=== PATIENT | female | born 1950 | race Hispanic/Latino ===

== ENCOUNTER 2019-08-09 14:49 | Outpatient (CLI) | payer MEDICARE, MEDICAID ==
--- NOTE | 2019-08-09 15:54 | MMO ---
Bilateral MAMMO Bilat Screen [facility]. CLINICAL HISTORY: Patient is 68 years old and is seen for screening. The patient has no family history of breast cancer. The patient has no personal history of cancer. VIEWS: The views performed were: bilateral craniocaudal with tomosynthesis and bilateral mediolateral oblique with tomosynthesis. FILMS COMPARED: The present examination has been compared to prior imaging studies performed at [facility] on 11/07/2012, 11/13/2013, 03/22/2015 and 08/20/2016. This study has been interpreted with the assistance of computer-aided detection. MAMMOGRAM FINDINGS: There are scattered fibroglandular densities. There are vascular calcifications seen in both breasts. There are no suspicious masses, suspicious calcifications, or new areas of architectural distortion. IMPRESSION: A ROUTINE FOLLOW-UP MAMMOGRAM IN 1 YEAR IS RECOMMENDED. THE RESULTS OF THIS EXAM WERE SENT TO THE PATIENT. ACR BI-RADS Category 2 - Benign finding MAMMOGRAPHY NOTE: 1. A negative mammogram report should not delay a biopsy if a dominant of clinically suspicious mass is present. 2. Approximately 10% to 15% of breast cancers are not detected by mammography. 3. Adenosis and dense breasts may obscure an underlying neoplasm. Reported by: ROBERT WILLINGHAM MD Electonically Signed: [id number]
--- NOTE | 2019-08-09 16:01 | BD ---
Exam: DEXA Bone Density 08/09/19 HISTORY: Postmenopausal. Lumbar Spine: BMD (g/cm2) T-SCORE L1 0.715 -2.5 L2 0.880 -1.3 L3 0.823 -2.4 L4 0.797 -2.4 L1-L4 0.806 -2.2 Left Femoral Neck: 0.518 -3.0 Total Femur: 0.774 -1.4 Impression: Osteoporosis left femoral neck and osteopenia lumbar spine with values bordering on the osteoporosis range. POS: [facility]
== END 2019-08-09 14:50 | disposition home or self-care (01) ==
LOC: BICMAMMO 14:49
PROVIDERS: ATTEND Internal Medicine
DX: Z12.31 Encounter for screening mammogram for malignant neoplasm of breast (principal); Z13.820 Encounter for screening for osteoporosis; M81.0 Age-related osteoporosis without current pathological fracture
CPT/HCPCS: 77063; 77067; 77080

== ENCOUNTER 2023-01-12 08:30 | Outpatient (CLI) | payer OTHER, MEDICAID ==
[2023-01-12] MEDS ORDERED: Iopamidol 370 76% 100 ML VIAL ONE (11:32)
== END 2023-01-12 08:31 | disposition home or self-care (01) ==
LOC: CT 08:30
PROVIDERS: ATTEND Surgery
DX: K43.2 Incisional hernia without obstruction or gangrene (principal); K43.9 Ventral hernia without obstruction or gangrene
CPT/HCPCS: 74177; 82565; Q9967

== ENCOUNTER 2023-02-11 11:37 | Outpatient (CLI) | payer OTHER, MEDICAID ==
[2023-02-11 12:47] LABS: #Basophils 0.1 10x3/uL (0.0-0.2); #Neutrophils 14.8 10x3/uL (1.5-8.4); %Basophils 0.3 % (0.0-2.0); %Eosinophils 0.1 % (0.0-6.0); %Lymphocytes 10.6 % (18.0-47.0); %Monocytes 5.8 % (0.0-10.0); %Neutrophils 82.5 % (40.0-75.0); Mean Corpuscular HGB CONC 31.9 g/dL (32.0-36.0); Mean Corpuscular Hemoglobin 28.8 pg (27.0-33.0); Mean Platelet Volume 11.4 fl (7.4-10.4); Platelet Count 281 10x3/uL (150-450); RBC Distribution Width 13.5 % (11.5-14.5); Red Blood Cell (RBC) Count 4.52 10x6/uL (3.90-5.03); White Blood Cell (WBC) Count 17.9 10x3/uL (3.5-10.5)
[2023-02-11 13:13] LABS: Anion Gap 14 mmol/L (10-20); BUN (Urea Nitrogen) 32 mg/dL (9.8-20.1); Calc. Creatinine Clearance 0 mL/min (70-130); Calcium 9.7 mg/dL (7.8-10.44); Carbon Dioxide 24 mmol/L (23-31); Chloride 105 mmol/L (98-107); Estimated GFR 62; Glucose 180 mg/dL (83-110); Potassium 4.1 mmol/L (3.5-5.1); Sodium 139 mmol/L (136-145)
== END 2023-02-11 11:38 | disposition home or self-care (01) ==
LOC: LABBT 11:37
PROVIDERS: ATTEND Surgery
DX: Z01.818 Encounter for other preprocedural examination (principal); K43.2 Incisional hernia without obstruction or gangrene
CPT/HCPCS: 80048; 85025; 93005; 93010

== ENCOUNTER 2023-02-16 07:29 | Day surgery (SDC) | payer OTHER, MEDICAID ==
[2023-02-12 14:32] VITALS: BMI 29.2
[2023-02-16] MEDS ORDERED: fentaNYL 50 mcg/mL 1 mL Vial ONE ×4 (10:40→13:19)
[2023-02-16] MEDS ORDERED: Bupivacaine/Epinephrine 0.25% 30 ML VIAL ONE (10:42)
[2023-02-16] MEDS ORDERED: Sodium Chloride 0.9% 100 ML ONE (10:55)
[2023-02-16] MEDS ORDERED: CEFAZOLIN 2 GM VIAL ONE (10:55)
[2023-02-16] MEDS ORDERED: Rocuronium Bromide 10 MG/ML (10ML VIAL) ONE ×2 (11:10→12:03)
[2023-02-16] MEDS ORDERED: Ondansetron PF 4 MG/2 ML Vial ONE ×2 (11:10→12:03)
[2023-02-16] MEDS ORDERED: Dexamethasone 20 MG/5 ML VIAL ONE ×2 (11:10→12:03)
[2023-02-16] MEDS ORDERED: Lidocaine 1% PF 5 ML VIAL ONE ×2 (11:10→12:03)
[2023-02-16] MEDS ORDERED: NEOSTIGMINE 3 MG/3 ML SYR 3 MG/3 ML SYRINGE ONE ×2 (11:10→12:03)
[2023-02-16] MEDS ORDERED: GLYCOPYRROLATE/PF 0.2 MG/ML VIAL ONE ×2 (11:10→12:03)
[2023-02-16] MEDS ORDERED: PROPOFOL 200 MG/20 ML VIAL ONE ×2 (11:10→12:03)
[2023-02-16] MEDS ORDERED: Labetalol HCl 100 MG/20 ML VIAL ONE (11:10)
[2023-02-16] MEDS ORDERED: Promethazine HCl 25 MG/ML VIAL ONE (13:06)
[2023-02-16] MEDS ORDERED: Morphine 2 MG/ML VIAL ONE (13:45)
[2023-02-16] MEDS ORDERED: HYDROcodone/Acetaminophen 5/325 mg Tablet ONE (14:55)
== END 2023-02-16 15:20 | disposition home or self-care (01) ==
LOC: SDC 07:29
PROVIDERS: ATTEND Surgery
PROC: 0WUF4JZ Supplement Abdominal Wall with Synthetic Substitute, Percutaneous Endoscopic Approach (ICD-10-PCS; principal; 2023-02-16)
PROC: 8E0W4CZ Robotic Assisted Procedure of Trunk Region, Percutaneous Endoscopic Approach (ICD-10-PCS; 2023-02-16)
DX: K43.2 Incisional hernia without obstruction or gangrene (principal); E66.01 Morbid (severe) obesity due to excess calories; I10 Essential (primary) hypertension; K21.9 Gastro-esophageal reflux disease without esophagitis; E78.5 Hyperlipidemia, unspecified; Z68.29 Body mass index [BMI] 29.0-29.9, adult; Z79.83 Long term (current) use of bisphosphonates; Z79.899 Other long term (current) drug therapy
CPT/HCPCS: 49595; J3010; C1781; J1100; J2272; J2405; J2550; J2704; J3490

== ENCOUNTER 2025-08-16 11:23 | Outpatient (CLI) | payer MEDICARE, MEDICAID | END 2025-08-16 11:24 | disposition home or self-care (01) | LOC: BICRAD 11:23 | PROVIDERS: ATTEND Family Medicine | DX: M25.531 Pain in right wrist (principal); M25.511 Pain in right shoulder ==